=== PATIENT | male | born 1950 | race Caucasian/White ===

== ENCOUNTER → 2019-05-14 | Emergency (ER) | payer OTHER ==
[2019-05-14] MEDS: KETOROLAC 30 MG INJ IM (11:34)
[2019-05-14] MEDS: predniSONE 20 MG TAB PO (11:34)
[2019-05-14] MEDS: ALBUTEROL 0.083% (NEB) 2.5 MG/3 ML AMP HHN (11:46)
[2019-05-14] MEDS: IPRATROPIUM (NEB) 0.5 MG/2.5 ML AMP HHN (11:46)
[2019-05-14] MEDS: SODIUM CHLORIDE 0.9% 1L BAG IV* (12:28)
[2019-05-14] MEDS: CEFTRIAXONE 1 GM/50 ML (PMX) 50 ML IVPB (12:31)
[2019-05-14 12:32] LABS: ADD MAN DIFF? NO
[2019-05-14 12:39] LABS: BASOPHILS % 0.3 % (0.0-2.0); EOSINOPHILS # 0.3 10^3/ul (0.0-0.5); EOSINOPHILS % 3.3 % (0.0-7.0); HEMATOCRIT 33.6 % (42.0-52.0); HEMOGLOBIN 10.7 g/dl (14.0-18.0); LYMPHOCYTES # 2.4 10^3/ul (0.8-2.9); LYMPHOCYTES % 24.6 % (15.0-51.0); MEAN CORPUSCULAR HEMOGLOBIN 29.6 pg (29.0-33.0); MEAN CORPUSCULAR HGB CONC 31.8 g/dl (32.0-37.0); MEAN CORPUSCULAR VOLUME 92.8 fl (82.0-101.0); MEAN PLATELET VOLUME 10.1 fl (7.4-10.4); MONOCYTE # 0.8 10^3/ul (0.3-0.9); MONOCYTES % 8.6 % (0.0-11.0); NEUTROPHIL # 6.1 10^3/ul (1.6-7.5); NEUTROPHILS % 62.6 % (39.0-77.0); PLATELET COUNT 224 10^3/UL (140-415); RED BLOOD COUNT 3.62 10^6/ul (4.70-6.10); RED CELL DISTRIBUTION WIDTH 13.3 % (11.5-14.5)
[2019-05-14 12:39] LABS: WHITE BLOOD COUNT 9.8 10^3/ul (4.8-10.8)
[2019-05-14] MEDS: DOXYCYCLINE 100 MG TAB PO (12:43)
[2019-05-14 12:59] LABS: ALANINE AMINOTRANSFERASE 25 IU/L (13-69); ALBUMIN 3.3 g/dl (3.3-4.9); ALKALINE PHOSPHATASE 72 IU/L (42-121); ANION GAP 6 (5-13); ASPARTATE AMINO TRANSFERASE 18 IU/L (15-46); BILIRUBIN,INDIRECT 0.4 mg/dl (0-1.1); BILIRUBIN,TOTAL 0.4 mg/dl (0.2-1.3); BLOOD UREA NITROGEN 14 mg/dl (7-20); CALCIUM 8.6 mg/dl (8.4-10.2); CARBON DIOXIDE 26 mmol/L (21-31); CHLORIDE 105 mmol/L (97-110); CREATININE 0.69 mg/dl (0.61-1.24); Estimated GFR > 60 mL/min (>60); GLUCOSE 107 mg/dl (70-220); SODIUM 137 mmol/L (135-144); TOTAL PROTEIN 6.3 g/dl (6.1-8.1)
[2019-05-14] MEDS: morphine 4 MG/ML VIAL IV (13:26)
== END | disposition home or self-care (01) ==
LOC: FTE 11:03
DX: J15.5 Pneumonia due to Escherichia coli (principal); F17.210 Nicotine dependence, cigarettes, uncomplicated; J45.901 Unspecified asthma with (acute) exacerbation
CPT/HCPCS: 36415; 71045; 80053; 83605; 85025; 87040-91; 94664; 96365; 96372; 99284-25